=== PATIENT | female | born 1950 | race Caucasian/White ===

== ENCOUNTER → 2017-12-17 | Outpatient (CLI) | payer OTHER ==
[~2017-12-17] MED LIST: ASPI1TAB83 PO; COEN1CAP7 PO; CYAN100020; FENO1TAB25 PO; IBUP-1428 PO; METF-384 PO; OLME40TA30 PO; OMEG10007 PO
--- NOTE | 2017-12-17 11:44 | DIAGNOSTIC IMAGING REPORT ---
KUB CLINICAL HISTORY: ABD PAIN COMPARISON STUDY: No previous studies for comparison. FINDINGS: There is no pathologic bowel dilatation. Degenerative changes are present within the lumbar spine and hips. The renal shadows are partially obscured overlying bowel gas and fecal material. No definite calculi are visualized. Pelvic basin calcifications are likely vascular. IMPRESSION: No evidence of pathologic bowel dilatation. Electronically signed by: Casper Mullen M.D. 12/17/2017 11:43 AM Dictated Date/Time: 12/17/2017 11:42 AM
== END | disposition home or self-care (01) ==
LOC: C.RAD 11:12
PROVIDERS: ATTEND Physician Assistant
DX: R10.84 Generalized abdominal pain (principal); K59.00 Constipation, unspecified

== ENCOUNTER 2018-02-12 10:20 | Emergency (ER) | payer OTHER ==
[~2018-02-12] VITALS: Ht 167.6 cm; Wt 90.4 kg
[~2018-02-12 10:20] MED LIST changes: -CYAN100020; +CYAN100020 PO
[2018-02-12 10:21] VITALS: Ht 167.6 cm; Wt 90.4 kg
[2018-02-12] MEDS ORDERED: OPTIRAY 320 IV PRN (11:00)
[2018-02-12] MEDS ORDERED: EZET10TA63 PO (11:36)
[2018-02-12] MEDS ORDERED: AMLO-110 PO (11:36)
[2018-02-12] MEDS ORDERED: MELA1CAP9 PO (11:36)
[2018-02-12] MEDS ORDERED: LINA1TAB PO (11:36)
[2018-02-12] MEDS ORDERED: CALC-416 PO (11:36)
[2018-02-12] MEDS ORDERED: LISI1TAB3 PO (11:36)
[2018-02-12 11:40] LABS: BASO % 0.2 %; BASO ABS # 0.02 K/uL (0-0.2); EOS % 1.6 %; EOS ABS # 0.13 K/uL (0-0.5); HEMATOCRIT 37.4 % (37-47); HEMOGLOBIN 12.5 g/dL (12.0-16.0); IG# 0.02 K/uL (0.00-0.02); LYMPH % 17.6 %; LYMPH ABS # 1.45 K/uL (1.2-3.4); MEAN CELL VOLUME 88.8 fL (80-100); MEAN CORPUSCULAR HEMOGLOBIN 29.7 pg (25-34); MEAN CORPUSCULAR HGB CONC 33.4 g/dl (32-36); MEAN PLATELET VOLUME 10.4 fL (7.4-10.4); MONO % 5.7 %; MONO ABS # 0.47 K/uL (0.11-0.59); NEUT % 74.7 %; NEUT ABS # 6.16 K/uL (1.4-6.5); PLATELET COUNT 262 K/uL (130-400); RED CELL DISTRIBUTION WIDTH CV 14.1 % (11.5-14.5); RED CELL DISTRIBUTION WIDTH SD 45.9 fL (36.4-46.3); WHITE BLOOD COUNT 8.25 K/uL (4.8-10.8)
[2018-02-12 11:47] LABS: ISTAT CREATININE 0.9 mg/dl (0.6-1.3); ISTAT IONIZED CALCIUM 1.26 mmol/l (1.12-1.32); ISTAT POTASSIUM 4.1 mEq/L (3.3-5.0)
--- NOTE | 2018-02-12 12:08 | DIAGNOSTIC IMAGING REPORT ---
CT PELVIS W/IV CONT ONLY (CT) CT DOSE: 521.50 mGy.cm CLINICAL HISTORY: Perirectal abscess TECHNIQUE: The patient was scanned in a dynamic helical fashion during intravenous administration 119 cc Optiray 320. A dose lowering technique was utilized adhering to the principles of ALARA. COMPARISON STUDY: None. FINDINGS: There is no pathologic bowel dilatation. There is no ascites. There is no free intraperitoneal air. The uterus and ovaries appear unremarkable. The appendix appears normal. There is no evidence of diverticulitis. Atheromatous changes are present within the aorta and iliac vessels. No aneurysm is visualized. There is no pathologic adenopathy. There is a 16 mm gas/fluid collection in the region of the gluteal fold. This is consistent with the described abscess. There is mild thickening of the surrounding posterior perineal soft tissues. A definite sinus tract communicating with the anus is not visualized. MRI scanning is more sensitive for the detection of anal and perianal abnormalities. There is severe L4-5 spinal stenosis IMPRESSION: 1. 16mm gas/fluid collection in the region of the gluteal fold, consistent with the clinically reported abscess. A discrete fistulous communication with the anus is not visualized on CT scanning. 2. Incidentally noted severe L4-5 spinal stenosis Electronically signed by: Casper Mullen M.D. 02/12/2018 12:07 PM Dictated Date/Time: 02/12/2018 12:01 PM
[2018-02-12] MEDS ORDERED: LIDO/EPINEPHRINE/SOD BICARB 20 ML VIAL INFIL ONE (12:15)
[2018-02-12] MEDS ORDERED: AMOX875T PO (13:45)
--- NOTE | 2018-02-12 13:47 | EMERGENCY ROOM VISIT NOTE ---
ED Visit Note First contact with patient: 10:26 CHIEF COMPLAINT: "There's something growing in the crack of my hiney" HISTORY OF PRESENT ILLNESS: Patient is a 67-year-old female who presents emergency department for suspected infection in her gluteal cleft. She states her symptoms started a couple of days ago. She states that every morning she rides her exercise bike. A couple of days ago, she states that she felt an irritation on her right buttock cheek. She states it felt like there was a bump there. Yesterday, she states that she felt like the area broke open and drained as she noted bloody purulent discharge in her clothing. She has not had any drainage since. She notes that the area is progressively coming more painful. It is sore in certain positions, and when she tries to stand up. She also has discomfort when she rates. She has not taken any medication for her discomfort. She has a remote history of a pilonidal cyst abscess when she was a teenager. She denies any fever, chills, nausea, vomiting, hematochezia or melena, changes in her bowel movement or difficulty with bowel movements. REVIEW OF SYSTEMS: Review of systems as per HPI. All other systems reviewed were negative. 10 systems reviewed. PMH: Electronic medical records are reviewed and summarized as above/below. See Problem List. SOCIAL HISTORY: Patient lives at home with her spouse. She does not smoke. . PHYSICAL EXAM: Vital Signs: Reviewed Nurse's notes. CONSTITUTIONAL: Patient is a pleasant, well-appearing 67-year-old female who is awake and alert and in no acute distress. INTEGUMENTARY: Examination of the rectal area show an erythematous, tender, fluctuant area on the right, superior and lateral to the rectum, at roughly 2:00. There is very slight purulent drainage noted from a tiny pinhole opening. There are no overt cellulitic changes. It does appear near but not involving the rectal area. EMERGENCY DEPARTMENT COURSE: The patient was seen and assessed as above. IV lock was initiated and labs were drawn. White count was normal. Given the location of the abscess, CT scan was performed which showed a small perirectal abscess. Given the location I was comfortable performing I&D. Procedure was noted below. Area appears to be more of an infected sebaceous cyst. Culture was obtained and is pending. She will be placed on Augmentin pending the cultures. She will return to the emergency department in 48 hours for wound recheck and packing removal. Medication reconciliation: I attest that I have personally reviewed the patient' s current medication list. Blood pressure screening: Patient was found to have a slightly elevated blood pressure due to circumstances. I do not believe that the patient requires hypertension monitoring. CT PELVIS W/IV CONT ONLY (CT) CT DOSE: 521.50 mGy.cm CLINICAL HISTORY: Perirectal abscess TECHNIQUE: The patient was scanned in a dynamic helical fashion during intravenous administration 119 cc Optiray 320. A dose lowering technique was utilized adhering to the principles of ALARA. COMPARISON STUDY: None. FINDINGS: There is no pathologic bowel dilatation. There is no ascites. There is no free intraperitoneal air. The uterus and ovaries appear unremarkable. The appendix appears normal. There is no evidence of diverticulitis. Atheromatous changes are present within the aorta and iliac vessels. No aneurysm is visualized. There is no pathologic adenopathy. There is a 16 mm gas/fluid collection in the region of the gluteal fold. This is consistent with the described abscess. There is mild thickening of the surrounding posterior perineal soft tissues. A definite sinus tract communicating with the anus is not visualized. MRI scanning is more sensitive for the detection of anal and perianal abnormalities. There is severe L4-5 spinal stenosis IMPRESSION: 1. 16mm gas/fluid collection in the region of the gluteal fold, consistent with the clinically reported abscess. A discrete fistulous communication with the anus is not visualized on CT scanning. 2. Incidentally noted severe L4-5 spinal stenosis PROCEDURE NOTE: Incision & Drainage Indication: Abscess. Location: Right perianal area Verbal consent was obtained after the risks and benefits were explained, including but not limited to bleeding, scarring, infection, pain, and bone/joint /nerve damage. At this time, the risks of the procedure are less than the risks of NOT performing the procedure. A time out was taken and the correct patient and site identified. The skin was prepped with betadine and a sterile field set. The wound was anesthetized with 1% lidocaine with epinephrine. The abscess cavity was entered with a number 11 blade and purulent material expressed. The area was decompressed with pressure, and some sebaceous material was noted. Cavity was probed with forceps, and sebaceous material was removed. Copious irrigation was performed using normal saline solution and diluted Betadine. Debridement was not performed. Packing placed and a sterile dressing applied. Detailed wound care instructions and signs and symptoms of worsening infection reviewed with the patient. No complications and the patient tolerated the procedure well. Problem List Medical Problems: (1) Chronic Kidney Disease, Stage 3 (Moderate) Status: Chronic (2) Diab Natalya Wo Compl, Type Ii Or Unspec Type, Not Uncntrld Status: Chronic (3) Hair follicle infection Status: Resolved (4) Hx Of Breast Malignancy Status: Resolved (5) Hyperlipidemia, Unspecified Status: Chronic (6) Hypertension Nos Status: Chronic Current/Historical Medications Scheduled Amlodipine (Norvasc), 5 MG PO DAILY Amoxicillin & Pot Clavulanate (Augmentin 875-125 mg), 1 TAB PO BID Aspirin (Aspirin), 81 MG PO DAILY Calcium Carbonate-Vitamin D (Calcium 600+D3), 2 TAB PO DAILY Coenzyme Q10 (Ubidecarenone) (Coq10), 200 MG PO DAILY Cyanocobalamin (Vitamin B12), 1 DOSE PO DAILY Ezetimibe (Zetia), 10 MG PO DAILY Fish Oil (Check-3), 2,000 MG PO DAILY Linagliptin (Tradjenta), 5 MG PO DAILY Lisinopril (Zestril), 30 MG PO DAILY Metformin Hcl (Glucophage), 1,000 MG PO DAILY Scheduled PRN Ibuprofen (Motrin), 800 MG PO for Pain Melatonin (Melatonin), 10 MG PO HS PRN for Sleep Allergies Coded Allergies: Statins (Unverified Allergy, Intermediate, EXTREME PAIN, 02/12/18) Vital Signs Date Time Temp Pulse Resp B/P (MAP) Pulse Ox O2 Delivery O2 Flow Rate FiO2 02/12/18 14:54 79 20 154/79 96 Room Air 02/12/18 14:52 36.8 85 20 163/82 95 02/12/18 12:47 85 20 163/82 02/12/18 10:21 36.8 72 20 180/90 95 Room Air Laboratory Results 02/12/18 11:30 Red Blood Count 4.21, Mean Corpuscular Volume 88.8, Mean Corpuscular Hemoglobin 29.7, Mean Corpuscular Hemoglobin Concent 33.4, Mean Platelet Volume 10.4, Neutrophils (%) (Auto) 74.7, Lymphocytes (%) (Auto) 17.6, Monocytes (%) (Auto) 5.7, Eosinophils (%) (Auto) 1.6, Basophils (%) (Auto) 0.2, Neutrophils # (Auto) 6.16, Lymphocytes # (Auto) 1.45, Monocytes # (Auto) 0.47, Eosinophils # (Auto) 0.13, Basophils # (Auto) 0.02 Test 02/12/18 11:30 02/12/18 11:35 White Blood Count 8.25 K/uL (4.8-10.8) Red Blood Count 4.21 M/uL (4.2-5.4) Hemoglobin 12.5 g/dL (12.0-16.0) Hematocrit 37.4 % (37-47) Mean Corpuscular Volume 88.8 fL (80-100) Mean Corpuscular Hemoglobin 29.7 pg (25-34) Mean Corpuscular Hemoglobin Concent 33.4 g/dl (32-36) Platelet Count 262 K/uL (130-400) Mean Platelet Volume 10.4 fL (7.4-10.4) Neutrophils (%) (Auto) 74.7 % Lymphocytes (%) (Auto) 17.6 % Monocytes (%) (Auto) 5.7 % Eosinophils (%) (Auto) 1.6 % Basophils (%) (Auto) 0.2 % Neutrophils # (Auto) 6.16 K/uL (1.4-6.5) Lymphocytes # (Auto) 1.45 K/uL (1.2-3.4) Monocytes # (Auto) 0.47 K/uL (0.11-0.59) Eosinophils # (Auto) 0.13 K/uL (0-0.5) Basophils # (Auto) 0.02 K/uL (0-0.2) RDW Standard Deviation 45.9 fL (36.4-46.3) RDW Coefficient of Variation 14.1 % (11.5-14.5) Immature Granulocyte % (Auto) 0.2 % Immature Granulocyte # (Auto) 0.02 K/uL (0.00-0.02) Bedside Hemoglobin 12.6 g/dl (12.0-16.0) Bedside Hematocrit 37 % (37-47) Bedside Sodium 140 mEq/L (135-144) Bedside Potassium 4.1 mEq/L (3.3-5.0) Bedside Chloride 102 mEq/L (101-112) Bedside Total CO2 27 mEq/l (24-31) Anion Gap 16.0 mmol/L (16-25) Bedside Blood Urea Nitrogen 23 mg/dl (7-18) Bedside Creatinine 0.9 mg/dl (0.6-1.3) Bedside Glucose (other) 143 mg/dl (70-99) Bedside Ionized Calcium (Amy) 1.26 mmol/l (1.12-1.32) Medications Administered Medications (Trade) Dose Ordered Sig/Ayush Route Start Time Stop Time Status Last Admin Dose Admin Amoxicillin/ Clavulanate Potassium (Augmentin Tab) 875 mg ONE ONCE PO 02/12/18 14:00 02/12/18 14:01 DC 02/12/18 13:56 875 MG Departure Information Impression Primary Impression: Perianal abscess Additional Impression: Infected sebaceous cyst Prescriptions Amoxicillin & Pot Clavulanate (Augmentin 875-125 mg) 1 Tab Tab 1 TAB PO BID, #20 TAB Prov: Tracy Yo PA 02/12/18 Referrals Brianne Nation PA-C (PCP) Patient Instructions My [facility] Additional Instructions Amoxicillin Clavulanate (Augmentin) 875mg: Take one pill twice daily for 10 days for your infection. All antibiotics can cause diarrhea. If this occurs and you feel worse or it does not resolve in 1-2 days follow up with your doctor or return to the Emergency Department as this could be signs of serious underlying problems. Any medication can cause an allergic reaction, stop the pills immediately and return to the ER for rash, hives, breathing difficulties, or swelling. Ibuprofen(Motrin, Advil) may be used for fever or pain. Use 600mg every six hours as needed. Take with food. Avoid using more than 2400mg in a 24 hour period. Do not use 2400mg per day for more than three consecutive days without physician direction. Prolonged inappropriate use can lead to stomach upset or ulcers. (AND/OR) Acetaminophen(Tylenol) may be used for fever or pain. Use 1000mg every six hours as needed. Avoid using more than 3000mg in a 24 hour period. Warm compresses or Sitz baths to the affected area 4 times daily for 15-20 minutes. Dressing changes daily, more often if the area becomes saturated or soiled. May shower. Be careful to not remove the packing material when bathing, dressing or changing her bandage. Rest and drink plenty of fluids. Continue current medications. Return to the ER in 48 hours for wound recheck and packing removal, immediately for severe pain, persistent fevers, spreading redness, or any worsening of your condition. Follow up with your primary physician within 2-3 days for a recheck of the current condition. Problem Qualifiers
[2018-02-12] MEDS ORDERED: AMOXICILLIN/CLAVULANATE TAB 875 MG TAB PO ONE (14:00)
[2018-02-12 14:52] VITALS: TEMP 36.8
[2018-02-12 14:54] VITALS: BP 154/79; PULSE 79; O2SAT 96
== END 2018-02-12 14:53 | disposition home or self-care (01) ==
LOC: C.EDB 10:21
DX: K61.0 Anal abscess (principal); L72.3 Sebaceous cyst; N18.3 Chronic kidney disease, stage 3 (moderate); E11.9 Type 2 diabetes mellitus without complications; E78.5 Hyperlipidemia, unspecified; I10 Essential (primary) hypertension; Z79.82 Long term (current) use of aspirin

== ENCOUNTER 2018-02-14 10:22 | Emergency (ER) | payer OTHER ==
[~2018-02-14] VITALS: Ht 167.6 cm; Wt 89.5 kg
[~2018-02-14 10:22] MED LIST changes: +AMLO-110 PO; +AMOX875T PO; +CALC-416 PO; +EZET10TA63 PO; -FENO1TAB25 PO; +LINA1TAB PO; +LISI1TAB3 PO; +MELA1CAP9 PO; -OLME40TA30 PO
[2018-02-14 10:40] VITALS: Ht 167.6 cm; Wt 89.5 kg
--- NOTE | 2018-02-14 11:10 | EMERGENCY ROOM VISIT NOTE ---
ED Visit Note First contact with patient: 10:43 CHIEF COMPLAINT: Recheck perianal abscess HPI: Patient is a 67-year-old female who returned to the emergency department as advised for recheck of a perianal abscess. Patient was seen and evaluated by myself here 48 hours ago for the same complaint. She had an I&D performed which actually noted sebaceous material and I suspect the sebaceous cyst was the source of the underlying condition. She has been taking the antibiotics as prescribed and notes minimal pain only discomfort with weightbearing. No further drainage or discharge. REVIEW OF SYSTEMS: Review of systems as per HPI. All other systems reviewed were negative. At least 6 systems reviewed. Appetite, headache, or weakness. PMH: Electronic medical records are reviewed and summarized as above/below. See Problem List. H hours istory. SOCIAL HISTORY: Patient lives at home. PHYSICAL EXAM: Vital Signs: Reviewed Nurse's notes. MENTAL STATUS: Alert, oriented, and not in distress. SKIN: Examination of the rectal area note the I& D site, opening is patent, however the induration and erythema has completely resolved. There is no drainage or discharge even with palpation. EMERGENCY DEPARTMENT COURSE: The patient was seen and assessed as above. Her culture from 2 days ago was reviewed, noting a gamma strep, not enterococcus, with no sensitivities pending. This should be adequately covered with the Augmentin. Clinically she is improving. She was advised on continued wound care measures and to finish her antibiotics as prescribed. She may desire to follow-up with colorectal or general surgery when the area has cleared for removal of the sebaceous cyst to prevent recurrence. Medication reconciliation: I attest that I have personally reviewed the patient' s current medication list. Blood pressure screening: Patient was found to have a slightly elevated blood pressure due to circumstances. I do not believe that the patient requires hypertension monitoring. Problem List Medical Problems: (1) Chronic Kidney Disease, Stage 3 (Moderate) Status: Chronic (2) Diab Natalya Wo Compl, Type Ii Or Unspec Type, Not Uncntrld Status: Chronic (3) Hair follicle infection Status: Resolved (4) Hx Of Breast Malignancy Status: Resolved (5) Hyperlipidemia, Unspecified Status: Chronic (6) Hypertension Nos Status: Chronic Current/Historical Medications Scheduled Amlodipine (Norvasc), 5 MG PO DAILY Amoxicillin & Pot Clavulanate (Augmentin 875-125 mg), 1 TAB PO BID Aspirin (Aspirin), 81 MG PO DAILY Calcium Carbonate-Vitamin D (Calcium 600+D3), 2 TAB PO DAILY Coenzyme Q10 (Ubidecarenone) (Coq10), 200 MG PO DAILY Cyanocobalamin (Vitamin B12), 1 DOSE PO DAILY Ezetimibe (Zetia), 10 MG PO DAILY Fish Oil (Como-3), 2,000 MG PO DAILY Linagliptin (Tradjenta), 5 MG PO DAILY Lisinopril (Zestril), 30 MG PO DAILY Metformin Hcl (Glucophage), 1,000 MG PO DAILY Scheduled PRN Ibuprofen (Motrin), 800 MG PO for Pain Melatonin (Melatonin), 10 MG PO HS PRN for Sleep Allergies Coded Allergies: Statins (Unverified Allergy, Intermediate, EXTREME PAIN, 02/14/18) Vital Signs Date Time Temp Pulse Resp B/P (MAP) Pulse Ox O2 Delivery O2 Flow Rate FiO2 02/14/18 11:25 36.6 74 20 146/82 93 02/14/18 10:40 36.6 74 20 146/82 93 Room Air Departure Information Impression Primary Impression: Encounter for wound re-check Additional Impression: Perianal abscess Referrals Brianne Nation PA-C (PCP) Patient Instructions My [facility] Additional Instructions Finish Augmentin as prescribed. Continue wound care as discussed. Follow up with your primary care physician this week for recheck, and with general surgery for definitive care. Problem Qualifiers
[2018-02-14 11:25] VITALS: BP 146/82; PULSE 74; TEMP 36.6; O2SAT 93
== END 2018-02-14 11:25 | disposition home or self-care (01) ==
LOC: C.EDB 10:23 → C.EDD 11:25
DX: Z48.00 Encounter for change or removal of nonsurgical wound dressing (principal); K61.0 Anal abscess; E11.22 Type 2 diabetes mellitus with diabetic chronic kidney disease; N18.3 Chronic kidney disease, stage 3 (moderate); E78.5 Hyperlipidemia, unspecified; I12.9 Hypertensive chronic kidney disease with stage 1 through stage 4 chronic kidney disease, or unspecified chronic kidney disease; Z79.82 Long term (current) use of aspirin; Z79.84 Long term (current) use of oral hypoglycemic drugs; Z79.899 Other long term (current) drug therapy; Z88.8 Allergy status to other drugs, medicaments and biological substances